=== PATIENT | male | born 1985 | race Caucasian/White ===

== ENCOUNTER → 2019-09-11 11:17 | Outpatient (CLI) | payer OTHER, SELFPAY ==
--- NOTE | 2019-09-11 11:24 | US_ITS ---
PROCEDURE: US TESTICULAR CLINICAL INDICATION: LT TESTICULAR PAIN AND SWELLING Patient kicked in the testicle about 3 weeks ago COMPARISON: No exams were available for comparison FINDINGS: The left testicle has a heterogeneous appearance measuring 3.1 x 3.6 x 4.3 centimeters. Right testicle is homogeneous of normal appears 3.5 x 4.0 x 3.9 centimeters. Internal color Doppler blood flow to both testicles is noted. Findings are highly suspicious for left intratesticular hematoma post trauma. Follow-up is recommended. Neoplasm is not excluded in this patient. Right epididymis has a normal appearance with the left epididymis nonvisualized. No significant hydrocele is noted. IMPRESSION: Heterogeneous enlarged left testicle. Intra testicular hematoma post trauma or testicular neoplasm must be considered. Follow-up is recommended. Dictated by: Maxim Gonzalez 09/11/2019 12:16 Electronically signed by Maxim Gonzalez in [facility] 09/11/2019 12:16
[2019-09-11 12:17] LABS: Microscopic, Urine URINE MICROSCOPIC (MICROSCOPIC)
[2019-09-11 12:34] LABS: Basophils % 0.4 % (0.1-2.0); Eosinophils % 0.6 % (0.1-12.0); Hematocrit 47.1 % (42.0-52.0); Hemoglobin 15.7 g/dL (14.1-18.0); Lymphocytes % 13.7 % (10-50); Mean Corpuscular HGB Conc 33.4 g/dL (31.8-35.4); Mean Corpuscular Hemoglobin 30.1 pg (27.0-31.2); Mean Corpuscular Volume 90.1 fl (80-94); Mean Platelet Volume 7.7 fl (7.4-10.4); Monocytes # 0.4 K/mm3 (0.1-1.0); Monocytes % 5.5 % (1.7-9.3); Neutrophils # 5.8 K/mm3 (1.8-7.8); Neutrophils % 79.7 % (37.0-80.0); Platelet Count 303 K/mm3 (142-424); Red Blood Count 5.22 M/mm3 (4.60-6.20); Red Cell Distribution Width 12.5 % (11.5-17.5); White Blood Count 7.2 K/mm3 (4.8-10.8)
[2019-09-11 12:59] LABS: Appearance,Urine CLEAR (Clear); Bilirubin,Urine Negative (Negative); Blood, Urine Negative (Negative); Color,Urine YELLOW (Yellow); Glucose,Urine (UA) Negative (Negative); Ketones,Urine Negative (Negative); Leukocyte Esterase,Urine Negative (Negative); Nitrate,Urine Negative (Negative); PH,Urine 6.5 (5.0-8.5); Protein,Urine Negative (Negative); Specific Gravity, Urine <= 1.005 (1.005-1.030); Urobilinogen,Urine 0.2 EU/dl (0.2)
[2019-09-11 13:08] LABS: Alanine Aminotransferase 25 U/L (12-78); Albumin Level 4.3 gm/dL (3.4-5.0); Albumin/Globulin Ratio 1.1 (1.1-1.8); Alkaline Phosphatase 83 U/L (46-116); Anion Gap 10.5 mEq/L (5-15); Aspartate Amino Transferase 19 U/L (15-37); Bilirubin,Total 0.3 mg/dL (0.2-1.0); Blood Urea Nitrogen 15 mg/dL (7-18); Calcium 9.5 mg/dL (8.5-10.1); Carbon Dioxide 31 mmol/L (21.0-32.0); Chloride 100 mmol/L (98-107); Estimated Glomerular Filt Rate 76 ml/min (>60); GFR (African American) 92 ML/MIN (>60); Globulin 3.9 gm/dl (1.3-3.2); Glucose 141 mg/dL (74-106); Potassium 4.5 mmoL/L (3.5-5.1); Sodium 137 mmol/L (136-145); Thyroid Stimulating Hormone 0.76 uIU/ml (0.358-3.740); Total Protein,Serum 8.2 gm/dL (6.4-8.2)
[2019-09-11 13:11] LABS: Bacteria,Urine Trace /lpf; Squamous Epithelial Cell,Urine Occasional #/hpf (0-5); WBC,Urine Occasional #/hpf (0-3)
[2019-09-11 13:41] LABS: HCG,Quantitative 0 mIU/mL
--- NOTE | 2019-09-11 14:07 | XR_ITS ---
PROCEDURE: XR CHEST 2V CLINICAL HISTORY: COUGH COMPARISON: No exams were available for comparison FINDINGS: The cardiomediastinal silhouette and pulmonary vascularity are within normal limits. The lungs are clear without infiltrates, suspicious nodules, or pleural effusions. Bilateral nipple piercing noted No acute bony abnormalities. IMPRESSION: No acute findings. Dictated by: Espinoza Walls MD 09/11/2019 14:57 Electronically signed by Espinoza Walls MD in [facility] 09/11/2019 14:57
[2019-09-11 15:41] LABS: Hemoglobin A1C 5.8 % (0.0-7.0)
[2019-09-13 13:02] LABS: AFP, Tumor Marker 2.7
== END ==
PROVIDERS: PCP Internal Medicine Adolescent Medicine; Visit Provider Nurse Practitioner Family
DX: N50.812 Left testicular pain (principal); N50.89 Other specified disorders of the male genital organs; R10.32 Left lower quadrant pain; R10.13 Epigastric pain; R53.83 Other fatigue; R05 Cough; R73.9 Hyperglycemia, unspecified
CPT/HCPCS: 36415; 71046; 76870; 80053; 81001; 82105; 83036; 84443; 84702; 85025; 87086

== ENCOUNTER → 2019-09-26 09:22 | Outpatient (CLI) | payer OTHER, SELFPAY ==
[2019-09-26 10:33] LABS: Activated Partial Thrombo Time 26.3 seconds (23.6-34.0); Prothrombin Time 10.4 seconds (9.4-11.8)
[2019-09-26 11:38] LABS: Lactate Dehydrogenase 218 U/L (82-234)
== END ==
PROVIDERS: Visit Provider Physician Assistant Medical
DX: N50.89 Other specified disorders of the male genital organs (principal)
CPT/HCPCS: 36415; 83615; 85610; 85730

== ENCOUNTER → 2019-10-22 11:35 | Outpatient (CLI) | payer OTHER, SELFPAY ==
[2019-10-22 12:08] LABS: Basophils % 0.8 % (0.1-2.0); Eosinophils # 0.1 K/mm3 (0.0-0.4); Eosinophils % 1.9 % (0.1-12.0); Hematocrit 43.5 % (42.0-52.0); Hemoglobin 14.6 g/dL (14.1-18.0); Lymphocytes % 21.3 % (10-50); Mean Corpuscular HGB Conc 33.6 g/dL (31.8-35.4); Mean Corpuscular Hemoglobin 29.8 pg (27.0-31.2); Mean Corpuscular Volume 88.5 fl (80-94); Monocytes # 0.4 K/mm3 (0.1-1.0); Monocytes % 8.8 % (1.7-9.3); Neutrophils # 3.3 K/mm3 (1.8-7.8); Neutrophils % 67.2 % (37.0-80.0); Platelet Count 379 K/mm3 (142-424); Red Blood Count 4.91 M/mm3 (4.60-6.20); Red Cell Distribution Width 12.8 % (11.5-17.5); White Blood Count 4.9 K/mm3 (4.8-10.8)
[2019-10-22 14:01] LABS: Alanine Aminotransferase 23 U/L (12-78); Albumin Level 5.1 g/dl (3.5-5.0); Albumin/Globulin Ratio 1.5 (1.1-1.8); Alkaline Phosphatase 59 U/L (38-126); Anion Gap 14.2 mEq/L (5-15); Aspartate Amino Transferase 31 U/L (17-59); Bilirubin,Total 0.3 mg/dl (0.2-1.3); Blood Urea Nitrogen 20 mg/dl (9-20); Carbon Dioxide 29 mmol/L (22.0-30.0); Chloride 99 mmol/L (98-107); Estimated Glomerular Filt Rate 96 ml/min (>60); GFR (African American) 116 ML/MIN (>60); Globulin 3.3 g/dL (1.3-3.2); Glucose 98 mg/dl (74-100); Lactate Dehydrogenase 166 U/L (313-618); Potassium 4.2 mmoL/L (3.5-5.1); Sodium 138 mmol/L (136-145); Total Protein,Serum 8.4 g/dl (6.3-8.2)
[2019-10-22 14:18] LABS: HCG,Quantitative < 2 mIU/ml (0-5.42)
[2019-10-23 08:03] LABS: AFP, Tumor Marker 3.2 ng/mL (0.0-8.3)
== END ==
PROVIDERS: Visit Provider Student in an Organized Health Care Education/Training Program
DX: C62.90 Malignant neoplasm of unspecified testis, unspecified whether descended or undescended (principal)
CPT/HCPCS: 36415; 80053; 82105; 83615; 84702; 85025

== ENCOUNTER → 2020-09-05 09:51 | Outpatient (CLI) | payer OTHER, SELFPAY ==
--- NOTE | 2020-09-05 10:14 | XR_ITS ---
PROCEDURE: XR CHEST 2V CLINICAL HISTORY: SEMINOMA, smoking history COMPARISON: CR XR CHEST 2V from 09/11/2019 FINDINGS: The cardiomediastinal silhouette and pulmonary vascularity are within normal limits. The lungs are clear without infiltrates, suspicious nodules, or pleural effusions. No acute bony abnormalities. IMPRESSION: No acute findings. Dictated by: Dr. James Mendez MD 09/05/2020 16:14 Dr. James Mendez MD in [facility] 09/05/2020 16:14
[2020-09-05 10:31] LABS: Basophils # 0.1 K/mm3 (0-0.2); Basophils % 1.1 % (0.1-2.0); Eosinophils # 0.1 K/mm3 (0.0-0.4); Eosinophils % 1.3 % (0.1-12.0); Hematocrit 49.7 % (42.0-52.0); Hemoglobin 16.2 g/dL (14.1-18.0); Lymphocytes # 1.5 K/mm3 (0.7-4.5); Lymphocytes % 27.1 % (10-50); Mean Corpuscular HGB Conc 32.6 g/dL (31.8-35.4); Mean Corpuscular Volume 91.9 fl (80-94); Monocytes # 0.5 K/mm3 (0.1-1.0); Monocytes % 8.5 % (1.7-9.3); Neutrophils # 3.5 K/mm3 (1.8-7.8); Platelet Count 357 K/mm3 (142-424); Red Blood Count 5.41 M/mm3 (4.60-6.20); Red Cell Distribution Width 13.6 % (11.5-17.5); White Blood Count 5.7 K/mm3 (4.8-10.8)
[2020-09-05 11:09] LABS: Alanine Aminotransferase 30 U/L (12-78); Albumin Level 4.6 g/dl (3.5-5.0); Albumin/Globulin Ratio 1.4 (1.1-1.8); Alkaline Phosphatase 70 U/L (38-126); Anion Gap 11.4 mEq/L (5-15); Aspartate Amino Transferase 34 U/L (17-59); Bilirubin,Total 0.4 mg/dl (0.2-1.3); Blood Urea Nitrogen 18 mg/dl (9-20); Calcium 10.1 mg/dl (8.4-10.2); Carbon Dioxide 33 mmol/L (22.0-30.0); Chloride 100 mmol/L (98-107); Estimated Glomerular Filt Rate 76 ml/min (>60); GFR (African American) 92 ML/MIN (>60); Globulin 3.4 g/dL (1.3-3.2); Glucose 97 mg/dl (74-100); Lactate Dehydrogenase 375 U/L (313-618); Potassium 4.4 mmoL/L (3.5-5.1); Sodium 140 mmol/L (136-145)
[2020-09-05 11:25] LABS: HCG,Quantitative < 2 mIU/ml (0-5.42)
[2020-09-06 18:28] LABS: AFP, Tumor Marker 2.8 ng/mL (0.0-8.3)
== END ==
PROVIDERS: Visit Provider Physician Assistant Medical
DX: C62.90 Malignant neoplasm of unspecified testis, unspecified whether descended or undescended (principal)
CPT/HCPCS: 36415; 71046; 80053; 82105; 83615; 84702; 85025

== ENCOUNTER 2020-12-21 21:55 | Emergency (ER) | payer OTHER, SELFPAY ==
[2020-12-21 22:03] VITALS: BP 144/91; PULSE 75; RESP 18; TEMP 36.9; O2SAT 100; BMI 29.2
--- NOTE | 2020-12-21 22:09 | XR_ITS ---
PROCEDURE: XR CHEST 2V CLINICAL HISTORY: coughing up blood History of seminoma COMPARISON: CR XR CHEST 2V from 09/11/2019 CR XR CHEST 2V from 09/05/[address] ANGIO CHEST from 12/21/2020 FINDINGS: There is a large right upper lobe mass measuring 12 x 8 cm. There is some minimal tracheal deviation toward the left. Postobstruction pneumonitis suspected also in the right upper lobe superiorly. There is mild left hilar adenopathy. No acute bony abnormalities. IMPRESSION: Large right upper lobe mass with left perihilar adenopathy suspicious for neoplasm. This has developed since 09/05/2020. There is history of seminoma according to previous chest x-ray report. Metastatic disease from seminoma is considered. Lymphoma would also be a consideration. Dictated by: Espinoza Walls MD 12/22/2020 05:58 Espinoza Walls MD in [facility] 12/22/2020 05:58
--- NOTE | 2020-12-21 22:09 | CT_ITS ---
PROCEDURE: CT ANGIO CHEST CLINCIAL INDICATION: coughing up blood History of seminoma COMPARISON: No exams were available for comparison TECHNIQUE: IV Contrast: 70ML Isovue 370 Axial images obtained with sagittal and coronal reformats. All CT scans at the facility use one or more dose reduction, viz: automated exposure control, ma/kV adjustment per patient size (including targeted exams where dose is matched to indication, i.e. head), or iterative reconstruction technique. FINDINGS: There is a large right upper lobe/perihilar mass 11 x 11 x 7 cm craniocaudal, AP and transverse respectively. There is peripheral occlusion of the right upper lobe segmental bronchi within the perihilar mass and occluded right middle lobe bronchus. No central necrosis/cavitation. Soft tissue density extends along the right mainstem bronchus up to near the level of the emelia concerning for mediastinal extension versus conglomerate sam enlargement. Postobstructive changes are present in the right upper lobe posteriorly and in the peripheral aspect of the right upper lobe laterally. The mass involves the entire aspect of the right middle lobe and most of the right upper lobe with some apical sparing. There is hyperexpansion of the right lower lobe. Nodularity is noted in the bronchovascular area in the right perihilar region of the right lower lobe consistent with adenopathy measuring up to 19 mm. There is mediastinal and left hilar adenopathy with nodules along the bronchovascular bundles of the left lower lobe superior segment measuring 17 x 16 mm. No effusions are apparent. No evidence of aortic aneurysm or dissection. No obvious central pulmonary embolus. The pulmonary arteries are not well opacified peripherally. There is constriction of the peripheral pulmonary arteries in the region of the right upper and right middle lobe mass but no definite occlusion No acute bony findings. Upper abdominal images show extensive adenopathy in the portal region and celiac area as well as adenopathy in the retroperitoneum. This is incompletely imaged. IMPRESSION: 1. Large right upper lobe right middle lobe and right perihilar mass as described above. There is mediastinal and left hilar adenopathy as well as adenopathy in the upper abdomen and retroperitoneum. Multiple nodules are present along the bronchovascular bundles of both lower lobes. Metastatic seminoma should be considered. Lymphoma would be an additional consideration. Some of the opacity in the right upper and right middle lobe may also be related to volume loss and consolidation. 2. No evidence of pulmonary embolus. Dictated by: Espinoza Walls MD 12/22/2020 11:08 Espinoza Walls MD in [facility] 12/22/2020 11:08
[2020-12-21 22:22] LABS: Basophils % 0.5 % (0.1-2.0); Eosinophils # 0.1 K/mm3 (0.0-0.4); Eosinophils % 1.4 % (0.1-12.0); Hematocrit 42.1 % (42.0-52.0); Hemoglobin 14.2 g/dL (14.1-18.0); Lymphocytes # 1.1 K/mm3 (0.7-4.5); Lymphocytes % 13.5 % (10-50); Mean Corpuscular HGB Conc 33.7 g/dL (31.8-35.4); Mean Corpuscular Hemoglobin 29.1 pg (27.0-31.2); Mean Corpuscular Volume 86.5 fl (80-94); Mean Platelet Volume 7.1 fl (7.4-10.4); Monocytes # 0.6 K/mm3 (0.1-1.0); Monocytes % 7.6 % (1.7-9.3); Neutrophils # 6.2 K/mm3 (1.8-7.8); Neutrophils % 76.9 % (37.0-80.0); Platelet Count 567 K/mm3 (142-424); Red Blood Count 4.86 M/mm3 (4.60-6.20); Red Cell Distribution Width 12.8 % (11.5-17.5); White Blood Count 8.1 K/mm3 (4.8-10.8)
[2020-12-21 22:33] LABS: Alanine Aminotransferase 57 U/L (12-78); Albumin Level 4.4 g/dl (3.5-5.0); Alkaline Phosphatase 131 U/L (38-126); Anion Gap 12.9 mEq/L (5-15); Aspartate Amino Transferase 61 U/L (17-59); Bilirubin,Indirect 0.2 mg/dL (0.0-0.9); Bilirubin,Total 0.2 mg/dl (0.2-1.3); Bilirubin,Unconjugated 0.2 mg/dL (0.0-1.1); Blood Urea Nitrogen 13 mg/dl (9-20); Calcium 9.8 mg/dl (8.4-10.2); Carbon Dioxide 28 mmol/L (22.0-30.0); Chloride 103 mmol/L (98-107); Creatinine Clearance Estimated 82 mL/min (50-200); Estimated Glomerular Filt Rate 69 ml/min (>60); GFR (African American) 83 ML/MIN (>60); Glucose 100 mg/dl (74-100); Potassium 3.9 mmoL/L (3.5-5.1); Sodium 140 mmol/L (136-145); Total Protein,Serum 8.9 g/dl (6.3-8.2)
--- NOTE | 2020-12-21 22:48 | HMH.EDURI ---
ED Disposition Clinical Impression: Mass of right lung, Cough with hemoptysis Disposition: Home, Self-Care Condition on Discharge: Serious Instructions: DI for Hemoptysis Additional Instructions: call pcp for follow up Referrals: Kimani Mcclain MD [Primary Care Provider] - Forms: Work/School Release - Critical Care Critical Care Time: No Attestation: On 12/21/20, the high probability of a clinically significant, sudden or life threatening deterioration of the following system(s) required my full and direct attention, intervention and personal management. The time I documented below is in addition to time spent performing reported procedures but includes the following listed in this critical care notation. Medical Decision Making - Medical Records Medical records reviewed: Yes: I reviewed the patient's medical records. - Andre Inquiry Pt receiving controlled substance: No Vital Signs: 12/21/20 22:03 Temperature 98.5 F Temperature Source Oral Pulse Rate [Right Brachial] 75 Respiratory Rate 18 Blood Pressure [Right Arm] 144/91 H Blood Pressure Mean [Right Arm] 108 Blood Pressure Source [Right Arm] Automatic Cuff Blood Pressure Position [Right Arm] Sitting 02 Sat by Pulse Oximetry 100 Oxygen Delivery Method Room Air - Lab Data Lab results reviewed: Yes: I reviewed the patient's lab results. Lab Results 12/21/20 22:10: WBC 8.1, RBC 4.86, Hgb 14.2, Hct 42.1, MCV 86.5, MCH 29.1, MCHC 33.7, RDW 12.8, Plt Count 567 H, MPV 7.1 L, Neut % (Auto) 76.9, Lymph % (Auto) 13.5, [place] % (Auto) 7.6, Eos % (Auto) 1.4, Baso % (Auto) 0.5, Neut # (Auto) 6.2, Lymph # (Auto) 1.1, [place] # (Auto) 0.6, Eos # (Auto) 0.1, Baso # (Auto) 0.0 12/21/20 22:10: Sodium 140, Potassium 3.9, Chloride 103, Carbon Dioxide 28, Anion Gap 12.9, BUN 13, Creatinine 1.20, Estimated Creat Clear 82, Estimated GFR 69, Est GFR ( Amer) 83, Glucose 100, Calcium 9.8, Total Bilirubin 0.2, Direct Bilirubin 0.0, Conjugated Bilirubin 0.0, Indirect Bilirubin 0.2, Unconjugated Bilirubin 0.2, AST 61 H, ALT 57, Alkaline Phosphatase 131 H, Total Protein 8.9 H, Albumin 4.4 12/21/20 22:10: Procalcitonin 0.067 12/22/20 00:00: ESR 27 H 12/22/20 00:00: C-Reactive Protein 43.3 H Result diagrams: 12/21/20 22:10 12/21/20 22:10 Orders (Tests/Meds): ED MEDICATIONS Discontinued Medications Generic Name Dose Route Start Last Admin Trade Name Freq PRN Reason Stop Dose Admin Iopamidol 70 ml 12/22/20 00:16 12/22/20 00:17 Iopamidol-370 (76%);100ml Bottle IV 12/22/20 00:17 70 ml ONCE ONE Administration Sodium Chloride 50 ml 12/22/20 00:16 12/22/20 00:17 0.9 % Sodium Chloride 50 Ml Vial IV 12/22/20 00:17 50 ml ONCE ONE Administration Sodium Chloride 10 ml 12/22/20 00:16 12/22/20 00:17 Sodium Chloride 0.9% 10ml Syr (Rad Only) IV 12/22/20 00:17 10 ml ONCE ONE Administration ORDERS Category Date Time Status CT angio chest Stat Cat Scan 12/21/20 22:09 Taken XR chest 2V Stat Exams 12/21/20 22:09 Taken Full Resp Panel w/COVID ([facility]) Routine Lab 12/21/20 22:49 Ordered - Radiology Data #1 Image(s): Chest Image Reviewed: Yes I reviewed the patient's radiology image Preliminary Findings: Abnormal (rt lung mass) - CT Data CT Scan: Chest Time Received: 02:[address] Reviewed: Yes: I have viewed the radiologist's interpretation Preliminary Findings: Abnormal (see report ) Medical Decision Narrative: has abn cxr and ct with hx of testicular cancer - will ask pt to call pcp in am URI/Sore Throat HPI - General Chief Complaint: Upper Respiratory Infection Stated Complaint: COUGHING UP BLOOD Time Seen by Provider: 12/21/20 22:30 Mode of Arrival: Family Vehicle Source of Information: Patient, Medical Record Limitations: No Limitations Description of Symptoms (Recalled from ER Triage Doc. by RN): has been coughing intermittently for two weeks; pcp placed on amoxicillin for bronchitis (finished yesterday) and s
[2020-12-21 22:50] LABS: Procalcitonin 0.067 ng/mL (0.0-2.0)
--- NOTE | 2020-12-21 23:59 | PC.NURSE ---
up in ct
--- NOTE | 2020-12-22 00:56 | PC.NURSE ---
Dr. Block on the phone vrad
[2020-12-22 01:19] LABS: C-Reactive Protein 43.3 mg/L (0-4)
[2020-12-22 01:24] LABS: Erythrocyte Sedimentation Rate 27 mm/hr (0-15)
[2020-12-22 02:31] VITALS: BP 124/75; PULSE 83; RESP 17; TEMP 36.8; O2SAT 98
== END 2020-12-22 01:22 | disposition home or self-care (01) ==
PROVIDERS: Emergency Provider Emergency Medicine; PCP Internal Medicine Adolescent Medicine
DX: R91.8 Other nonspecific abnormal finding of lung field (principal); R04.2 Hemoptysis; F17.210 Nicotine dependence, cigarettes, uncomplicated; Z85.47 Personal history of malignant neoplasm of testis
CPT/HCPCS: 71046; 71275; 80048; 80076; 84145; 85025; 85651; 86140; 99283; Q9967

== ENCOUNTER → 2020-12-22 14:28 | Outpatient (CLI) | payer OTHER, SELFPAY ==
[2020-12-22 15:25] LABS: Uric Acid 7.2 mg/dl (3.5-8.5)
[2020-12-22 15:31] LABS: Lactate Dehydrogenase > 2000 U/L (313-618)
[2020-12-22 15:50] LABS: HCG,Quantitative < 2 mIU/ml (0-5.42)
[2020-12-22 17:02] LABS: Basophils # 0.1 K/mm3 (0-0.2); Basophils % 1.1 % (0.1-2.0); Eosinophils # 0.1 K/mm3 (0.0-0.4); Eosinophils % 1.1 % (0.1-12.0); Hematocrit 44.4 % (42.0-52.0); Hemoglobin 14.4 g/dL (14.1-18.0); Lymphocytes # 0.9 K/mm3 (0.7-4.5); Lymphocytes % 11.7 % (10-50); Mean Corpuscular HGB Conc 32.5 g/dL (31.8-35.4); Mean Corpuscular Hemoglobin 28.7 pg (27.0-31.2); Mean Corpuscular Volume 88.3 fl (80-94); Mean Platelet Volume 7.2 fl (7.4-10.4); Monocytes # 0.7 K/mm3 (0.1-1.0); Monocytes % 8.8 % (1.7-9.3); Neutrophils % 77.2 % (37.0-80.0); Platelet Count 587 K/mm3 (142-424); Red Blood Count 5.03 M/mm3 (4.60-6.20); Red Cell Distribution Width 12.7 % (11.5-17.5); White Blood Count 7.8 K/mm3 (4.8-10.8)
[2020-12-22 17:10] LABS: INR 0.91 (0.9-1.1); Prothrombin Time 10.8 seconds (10.1-12.5)
[2020-12-22 17:23] LABS: C-Reactive Protein 46.8 mg/L (0-4)
[2020-12-24 15:12] LABS: AFP, Tumor Marker 3.2 ng/mL (0.0-8.3)
[2020-12-25 16:02] LABS: Fungitell(Beta D-Glucan) Serum <31 pg/mL (<80)
[2020-12-26 00:05] LABS: Histoplasma Gal'mannan Ag Ur <0.5 (<0.5 ng/mL)
[2020-12-26 10:12] LABS: QuantiFERON-TB Gold Plus Negative (Negative)
[2020-12-26 14:39] LABS: Aspergillus Antigen, BAL/Serum 0.06 Index (0.00-0.49)
== END ==
PROVIDERS: Internal Medicine Pulmonary Disease; Visit Provider Internal Medicine Medical Oncology
DX: R59.0 Localized enlarged lymph nodes (principal); Z85.47 Personal history of malignant neoplasm of testis; R04.2 Hemoptysis; R91.8 Other nonspecific abnormal finding of lung field; J45.909 Unspecified asthma, uncomplicated
CPT/HCPCS: 36415; 82105; 83615; 84550; 84702; 85025; 85610; 86140; 86480; 87305; 87385; 87449

== ENCOUNTER → 2020-12-23 10:48 | Outpatient (CLI) | payer OTHER, SELFPAY ==
--- NOTE | 2020-12-23 10:57 | CT_ITS ---
PROCEDURE: CT ABDOMEN PELVIS WO/W CON CLINICAL INDICATION: LUNG MASS History of testicular cancer. COMPARISON: CT CT ANGIO CHEST from 12/21/2020 TECHNIQUE: IV Contrast: 75ML Isovue 370 Oral Contrast None Axial images obtained with sagittal and coronal reformats. All CT scans at the facility use one or more dose reduction, viz: automated exposure control, ma/kV adjustment per patient size (including targeted exams where dose is matched to indication, i.e. head), or iterative reconstruction technique. FINDINGS: LOWER THORAX: There are mild atelectatic changes in the right lung base. A nodular opacity is present in the lingula measuring approximately 10 x 6 mm. Dense consolidation/volume loss and or mass once again noted in the right middle lobe ABDOMEN & PELVIS: There are several hypodense hepatic lesions, at least 5 in both lobes of the liver the largest in the right hepatic lobe inferiorly at 13 mm. These are more dense than what 1 would expect for hepatic cysts and may be due to metastatic disease. Liver MRI with hemangioma protocol may confirm. The spleen and adrenal glands have an unremarkable appearance. Pancreas has an unremarkable appearance. Nonobstructing stone is present in the lower pole of the right kidney at 3 mm.. No hydronephrosis. There is moderate retroperitoneal adenopathy as well as adenopathy in the upper abdomen around the celiac axis. The sam mass in this region measures 3 x 5 cm. The retroperitoneal sam mass measures 5.4 x 5.1 cm. No intestinal obstruction or free air. Urinary bladder is distended. There is no inguinal or iliac adenopathy. No evidence of appendicitis. No abnormal fluid collections. No acute bony findings. IMPRESSION: 1. Bulky upper abdominal and retroperitoneal adenopathy which may represent involvement from patient's known history of testicular cancer. Lymphoma is included in the differential diagnosis. 2. Hypodense hepatic lesions suspicious for metastatic disease. 3. 10 x 6 mm nodule within the lingula with atelectatic changes in the right lung base and dense consolidation/volume loss of the right middle lobe Dictated by: Espinoza Walls MD 12/23/2020 12:53 Espinoza Walls MD in [place] 12/23/2020 12:53
== END ==
PROVIDERS: PCP Internal Medicine Adolescent Medicine; Visit Provider Internal Medicine Adolescent Medicine
DX: R91.8 Other nonspecific abnormal finding of lung field (principal)
CPT/HCPCS: 74178; 87070; 87205; Q9967

== ENCOUNTER → 2020-12-26 12:08 | Outpatient (CLI) | payer OTHER, SELFPAY | PROVIDERS: PCP Internal Medicine Adolescent Medicine; Visit Provider Internal Medicine Pulmonary Disease | DX: Z20.822 Contact with and (suspected) exposure to COVID-19 (principal) | CPT/HCPCS: U0003 ==

== ENCOUNTER 2020-12-29 11:35 | Day surgery (SDC) | payer OTHER, SELFPAY ==
[2020-12-25 14:20] VITALS: BMI 22.8
[2020-12-29] VITALS (9 sets, daily range): BP systolic 119–146; BP diastolic 69–86; PULSE 56–90; RESP 12–18; TEMP 36.6–43; O2SAT 92–97
--- NOTE | 2020-12-29 14:55 | HMH.ANESCL ---
[facility] Anesthesia Checklist - Patient Identification Patient Identification: Arm Band - Structural Data Admitted From: Home Planned Operative Procedure/s: Bronchoscopy with EBUS Consent for Planned Operative Procedure(s) Verified: Yes Verified Documents: Surgical Consent, History and Physical - NPO Status Verified Time NPO: 00:00 - Additional verifications Anesthesia Reactions: No Hx Blood Transfusions: No Blood Transfusion Reaction: No - Airway Assessment C-Spine Mobility Assessed: Yes (mp2) TMJ Mobility Assessed: Yes Dentition: Good Dentition - Neurological Assessment Level of Consciousness: Awake, Alert - Anesthesia Plan Anesthesia Risk discussed: Yes Anesthesia Plan: Verified ASA Class: II Anesthesia Type: General [facility] History Medical History: Reports:: Cancer (LUNG) Denies:: Diabetes Mellitus Type 1, Diabetes Mellitus Type 2, MRSA, Seizures *Have you ever received a pneumonia vaccine?: No *Have you received a flu vaccine this season?: No Other Medical History: Denies: Blood Transfusion Reaction Anesthesia experience/problems:: nac Laterality Cases: Right: Arthroscopy Shoulder Amputation: No Fractures: No - *Social History Last grade of school completed: High school graduate Smoking Status: Former smoker Tobacco Type: cigarettes # Packs/Day (cigarettes): 1 Alcohol Intake: never Alcohol Intake Frequency:: a few times a week Substance Use Type: opiates *Occupational Status:: disabled *Travel in the last 8 weeks: None Family Hx:: No significant family history
--- NOTE | 2020-12-29 16:07 | HMH.ANESI ---
[facility] Anesthesia Record Part I Intake, IV Amount: 1,000 Estimated blood loss (mL): 0 Urine output (mL): 0 Blood Pressure: 142/69 SaO2: 92 Pulse Rate: 82 Respiratory Rate: 12 Temperature: 97.9 F Patient is:: Awake, Stable Stable to PACU at:: 16:05
--- NOTE | 2020-12-29 16:29 | HMH.BRONCH ---
- Procedure: Date: 12/29/20 Patient Date of :: 1985 Procedure Performed:: Bronchoscopy with EBUS FNA and endobronchial biopsy Indications:: Lung mass and lymphadenopathy Performing Provider:: Félix Hernández MD Referring Provider:: Dr. Mcclain Sedation:: General anesthesia Procedure:: Bronchoscopy with EBUS FNA and endobronchial lung biopsy: A clean EBUS scope was advanced to the ET tube and EBUS FNA was performed at station 7 and station 10 R with adequate lymphoid tissue that is concerning for malignant etiology. Tissue was sent for the slides and for cell block/cytopathological examination. EBUS bronchoscopy was removed and a clean therapeutic bronchoscopy advanced for airway examination. Airways in the left lung appeared grossly normal. Airways in the right lung are grossly abnormal. Right upper lobe segmental bronchi are occluded with tumor mass extending into the mainstem. Endobronchial lesion was also noted in the bronchus intermedius. Right middle lobe bronchus is completely occluded. Right lower lobe bronchi appeared grossly normal. Endobronchial biopsies was performed for the lesions noted in the right upper lobe. Minimal bleeding noted. Adequate hemostasis achieved by the end of the procedure. Patient tolerated the procedure well. Patient already had a oncology appointment with Dr. Hoffmann at [facility] for coming Tuesday. I have discussed with the pathology to expedite the reports so patient will have the report by the time of his oncology appointment. Patient is scheduled to receive his PET scan this morning however that was canceled. We will hold off on rescheduling the PET scan until patient sees his oncologist. The PET scan was already prior authorized and I have informed the patient that he can get his PET scan at as per his oncologist. Findings:: Please see the procedure note. Recommendations:: Follow with oncology appointment. Complications:: None Estimated blood obtained (mL): 5
[2020-12-30 12:54] VITALS: BP 131/86; PULSE 90; TEMP 36.9
--- NOTE | 2020-12-30 12:54 | P.PN_ITS ---
[facility] Anesthesia Record Part II Discharge Time: 16:35 Destination: Surgical Day Care (OP Surgery) PACU nurse assessment reviewed?: Yes Patient Condition:: Good Anesthesia Complications:: None Swallowing reflex intact?: Yes Cyanosis?: No Blood Pressure: 131/86 Pulse Rate: 90 Temperature: 98.5 F Mental Status: Alert & Oriented Pain level:: 0 Nausea and/or vomitting:: None Intake, IV Amount: 0
== END 2020-12-29 17:05 | disposition home or self-care (01) ==
LOC: OR 11:36
PROVIDERS: PCP Internal Medicine Adolescent Medicine; Visit Provider Internal Medicine Pulmonary Disease
PROC: (CPT 31652; principal; 2020-12-29 13:00)
DX: C34.11 Malignant neoplasm of upper lobe, right bronchus or lung (principal)
CPT/HCPCS: 31652; 31625; J2405; J2710

== ENCOUNTER 2021-02-16 08:13 | Outpatient (CLI) | payer OTHER, SELFPAY ==
[2021-02-16] VITALS (17 sets, daily range): BP systolic 91–145; BP diastolic 46–79; PULSE 62–82; RESP 17; TEMP 36.6–36.7; O2SAT 17–97; BMI 24.0
[2021-02-16 08:39] LABS: Basophils % 0.8 % (0.1-2.0); Eosinophils # 0.1 K/mm3 (0.0-0.4); Eosinophils % 2.5 % (0.1-12.0); Hematocrit 38.3 % (42.0-52.0); Lymphocytes # 1.2 K/mm3 (0.7-4.5); Lymphocytes % 25.8 % (10-50); Mean Corpuscular HGB Conc 33.9 g/dL (31.8-35.4); Mean Corpuscular Hemoglobin 28.5 pg (27.0-31.2); Mean Corpuscular Volume 84.1 fl (80-94); Mean Platelet Volume 7.7 fl (7.4-10.4); Monocytes # 0.7 K/mm3 (0.1-1.0); Monocytes % 15.8 % (1.7-9.3); Neutrophils # 2.6 K/mm3 (1.8-7.8); Platelet Count 338 K/mm3 (142-424); Red Blood Count 4.56 M/mm3 (4.60-6.20); Red Cell Distribution Width 17.8 % (11.5-17.5); White Blood Count 4.7 K/mm3 (4.8-10.8)
[2021-02-16 08:51] LABS: Chloride 98 mmol/L (98-107); Sodium 136 mmol/L (136-145)
[2021-02-16 08:52] LABS: Potassium 4.1 mmoL/L (3.5-5.1)
[2021-02-16 08:54] LABS: Alanine Aminotransferase 24 U/L (12-78); Albumin Level 4.5 g/dl (3.5-5.0); Albumin/Globulin Ratio 1.4 (1.1-1.8); Alkaline Phosphatase 85 U/L (38-126); Anion Gap 14.1 mEq/L (5-15); Aspartate Amino Transferase 34 U/L (17-59); Bilirubin,Total 0.4 mg/dl (0.2-1.3); Blood Urea Nitrogen 19 mg/dl (9-20); Calcium 9.1 mg/dl (8.4-10.2); Carbon Dioxide 28 mmol/L (22.0-30.0); Creatinine Clearance Estimated 85 mL/min (50-200); Estimated Glomerular Filt Rate 68 ml/min (>60); GFR (African American) 82 ML/MIN (>60); Globulin 3.3 g/dL (1.3-3.2); Glucose 122 mg/dl (74-100); Total Protein,Serum 7.8 g/dl (6.3-8.2)
[2021-02-16 08:55] LABS: Magnesium 2.2 mg/dl (1.6-2.3)
--- NOTE | 2021-02-16 09:55 | PC.NURSE ---
pre-fluids started at this time. pt resting with eyes closed. no complaints at this time.
--- NOTE | 2021-02-16 11:10 | PC.NURSE ---
pt resting with eyes closed.
--- NOTE | 2021-02-16 13:24 | PC.NURSE ---
post fluids and etopodise started at this time. pt resting watching TV. no complaints at this time
--- NOTE | 2021-02-16 13:50 | PC.NURSE ---
cisplatin started at this time. pt eating lunch. no complaints at this time
== END 2021-02-16 16:37 | disposition home or self-care (01) ==
LOC: INF 08:13
PROVIDERS: Visit Provider Internal Medicine Medical Oncology
DX: Z51.11 Encounter for antineoplastic chemotherapy (principal); C62.92 Malignant neoplasm of left testis, unspecified whether descended or undescended; C78.00 Secondary malignant neoplasm of unspecified lung; K76.89 Other specified diseases of liver; C78.6 Secondary malignant neoplasm of retroperitoneum and peritoneum
CPT/HCPCS: 80053; 83735; 85025; 96411; 96413; 96415; 96417; J2469; J9040; J9060; J9181

== ENCOUNTER 2021-02-17 08:40 | Outpatient (CLI) | payer OTHER, SELFPAY ==
[2021-02-17] VITALS (9 sets, daily range): BP systolic 114–129; BP diastolic 58–73; PULSE 61–78; RESP 18; TEMP 36.4; O2SAT 97–98
== END 2021-02-17 14:37 | disposition home or self-care (01) ==
LOC: INF 08:40
PROVIDERS: Visit Provider Internal Medicine Medical Oncology
DX: Z51.11 Encounter for antineoplastic chemotherapy (principal); C62.92 Malignant neoplasm of left testis, unspecified whether descended or undescended; C78.00 Secondary malignant neoplasm of unspecified lung; K76.89 Other specified diseases of liver; C78.6 Secondary malignant neoplasm of retroperitoneum and peritoneum
CPT/HCPCS: 96413; 96415; 96417; J1642; J9060; J9181

== ENCOUNTER 2021-02-18 08:35 | Outpatient (CLI) | payer OTHER, SELFPAY ==
[2021-02-18] VITALS (12 sets, daily range): BP systolic 105–125; BP diastolic 51–94; PULSE 58–80; RESP 17–18; O2SAT 97
== END 2021-02-18 14:20 | disposition home or self-care (01) ==
LOC: INF 08:43
PROVIDERS: Visit Provider Internal Medicine Medical Oncology
DX: Z51.11 Encounter for antineoplastic chemotherapy; C62.92 Malignant neoplasm of left testis, unspecified whether descended or undescended; C78.00 Secondary malignant neoplasm of unspecified lung; K76.89 Other specified diseases of liver; C78.6 Secondary malignant neoplasm of retroperitoneum and peritoneum
CPT/HCPCS: 96413; 96415; 96417; J1642; J9060; J9181

== ENCOUNTER 2021-02-19 08:35 | Outpatient (CLI) | payer OTHER, SELFPAY ==
[2021-02-19] VITALS (11 sets, daily range): BP systolic 122–153; BP diastolic 61–85; PULSE 59–73; RESP 17–18; O2SAT 96
== END 2021-02-19 14:45 | disposition home or self-care (01) ==
LOC: INF 08:58
PROVIDERS: Visit Provider Internal Medicine Medical Oncology
DX: C62.92 Malignant neoplasm of left testis, unspecified whether descended or undescended (principal); C78.00 Secondary malignant neoplasm of unspecified lung; K76.89 Other specified diseases of liver; C78.6 Secondary malignant neoplasm of retroperitoneum and peritoneum
CPT/HCPCS: 96413; 96415; 96417; J1642; J9060; J9181

== ENCOUNTER 2021-02-20 08:25 | Outpatient (CLI) | payer OTHER, SELFPAY ==
[2021-02-20] VITALS (17 sets, daily range): BP systolic 117–146; BP diastolic 70–89; PULSE 51–80; RESP 16–18; TEMP 36.7; O2SAT 95
== END 2021-02-20 15:00 | disposition home or self-care (01) ==
LOC: INF 08:35
PROVIDERS: Visit Provider Internal Medicine Medical Oncology
DX: C62.92 Malignant neoplasm of left testis, unspecified whether descended or undescended (principal); C78.00 Secondary malignant neoplasm of unspecified lung; K76.89 Other specified diseases of liver; C78.6 Secondary malignant neoplasm of retroperitoneum and peritoneum
CPT/HCPCS: 96413; 96415; 96417; J1642; J9060; J9181

== ENCOUNTER 2021-02-24 11:50 | Outpatient (CLI) | payer OTHER, SELFPAY ==
[2021-02-24 12:01] VITALS: BMI 23.7
[2021-02-24 12:11] LABS: Basophils % 0.2 % (0.1-2.0); Eosinophils % 0.5 % (0.1-12.0); Hematocrit 36.4 % (42.0-52.0); Hemoglobin 12.4 g/dL (14.1-18.0); Lymphocytes # 0.3 K/mm3 (0.7-4.5); Lymphocytes % 4.7 % (10-50); Mean Corpuscular HGB Conc 34.1 g/dL (31.8-35.4); Mean Corpuscular Hemoglobin 28.6 pg (27.0-31.2); Mean Corpuscular Volume 84.1 fl (80-94); Mean Platelet Volume 7.9 fl (7.4-10.4); Monocytes # 0.1 K/mm3 (0.1-1.0); Monocytes % 0.9 % (1.7-9.3); Neutrophils # 6.8 K/mm3 (1.8-7.8); Neutrophils % 93.7 % (37.0-80.0); Platelet Count 140 K/mm3 (142-424); Red Blood Count 4.33 M/mm3 (4.60-6.20); Red Cell Distribution Width 17.5 % (11.5-17.5); White Blood Count 7.3 K/mm3 (4.8-10.8)
[2021-02-24 12:15] LABS: MANUAL DIFFERENTIAL MANUAL DIFFERENTIAL (MANUAL DIFF)
[2021-02-24 12:25] LABS: Chloride 101 mmol/L (98-107)
[2021-02-24 12:26] LABS: Potassium 4.1 mmoL/L (3.5-5.1); Sodium 137 mmol/L (136-145)
[2021-02-24 12:28] LABS: Blood Urea Nitrogen 20 mg/dl (9-20); Creatinine Clearance Estimated 112 mL/min (50-200); Estimated Glomerular Filt Rate 95 ml/min (>60); GFR (African American) 115 ML/MIN (>60)
[2021-02-24 12:29] LABS: Alanine Aminotransferase 35 U/L (12-78); Albumin Level 4.6 g/dl (3.5-5.0); Albumin/Globulin Ratio 1.5 (1.1-1.8); Alkaline Phosphatase 66 U/L (38-126); Anion Gap 16.1 mEq/L (5-15); Aspartate Amino Transferase 28 U/L (17-59); Bilirubin,Total 0.3 mg/dl (0.2-1.3); Calcium 9.3 mg/dl (8.4-10.2); Carbon Dioxide 24 mmol/L (22.0-30.0); Globulin 3.1 g/dL (1.3-3.2); Glucose 125 mg/dl (74-100); Magnesium 1.9 mg/dl (1.6-2.3); Total Protein,Serum 7.7 g/dl (6.3-8.2)
[2021-02-24 13:10] VITALS: BP 130/71; PULSE 77; RESP 17; TEMP 36.8; O2SAT 98
[2021-02-24 13:16] LABS: Eosinophils % 6 % (0-3); Lymphocytes % 9 % (10-50); Monocytes % 1 % (2-9); Neutrophils % 84 % (42-76); Total Cells Counted 100
[2021-02-24 13:17] LABS: Anisocytosis 1+; Microcytosis 1+; Platelet Estimate Normal
[2021-02-24 13:18] LABS: Hypersegmented Neutrophils 1+
[2021-02-24 14:01] VITALS: BP 134/84; PULSE 75; RESP 17; O2SAT 98
== END 2021-02-24 14:02 | disposition home or self-care (01) ==
LOC: INF 11:52
PROVIDERS: Visit Provider Internal Medicine Medical Oncology
DX: C62.92 Malignant neoplasm of left testis, unspecified whether descended or undescended (principal); C78.00 Secondary malignant neoplasm of unspecified lung; C78.6 Secondary malignant neoplasm of retroperitoneum and peritoneum; K76.89 Other specified diseases of liver
CPT/HCPCS: 80053; 83735; 85007; 85025; 96413; J1642; J9040

== ENCOUNTER 2021-03-03 10:40 | Outpatient (CLI) | payer OTHER, SELFPAY ==
[2021-03-03 10:41] VITALS: BMI 23.7
[2021-03-03 10:56] LABS: Basophils % 2.6 % (0.1-2.0); Eosinophils % 1.1 % (0.1-12.0); Hemoglobin 11.5 g/dL (14.1-18.0); Lymphocytes # 0.5 K/mm3 (0.7-4.5); Lymphocytes % 39.9 % (10-50); Mean Corpuscular HGB Conc 32.9 g/dL (31.8-35.4); Mean Corpuscular Hemoglobin 28.2 pg (27.0-31.2); Mean Corpuscular Volume 85.7 fl (80-94); Mean Platelet Volume 6.9 fl (7.4-10.4); Monocytes # 0.3 K/mm3 (0.1-1.0); Monocytes % 21.7 % (1.7-9.3); Neutrophils # 0.5 K/mm3 (1.8-7.8); Neutrophils % 34.6 % (37.0-80.0); Platelet Count 342 K/mm3 (142-424); Red Blood Count 4.09 M/mm3 (4.60-6.20); Red Cell Distribution Width 18.3 % (11.5-17.5)
[2021-03-03 11:02] LABS: Chloride 103 mmol/L (98-107)
[2021-03-03 11:03] LABS: Potassium 3.9 mmoL/L (3.5-5.1); Sodium 140 mmol/L (136-145)
[2021-03-03 11:04] LABS: MANUAL DIFFERENTIAL MANUAL DIFFERENTIAL (MANUAL DIFF)
[2021-03-03 11:05] LABS: Alanine Aminotransferase 24 U/L (12-78); Albumin Level 4.2 g/dl (3.5-5.0); Albumin/Globulin Ratio 1.3 (1.1-1.8); Alkaline Phosphatase 82 U/L (38-126); Anion Gap 12.9 mEq/L (5-15); Aspartate Amino Transferase 29 U/L (17-59); Bilirubin,Total 0.2 mg/dl (0.2-1.3); Blood Urea Nitrogen 15 mg/dl (9-20); Carbon Dioxide 28 mmol/L (22.0-30.0); Creatinine Clearance Estimated 92 mL/min (50-200); Estimated Glomerular Filt Rate 75 ml/min (>60); GFR (African American) 91 ML/MIN (>60); Globulin 3.2 g/dL (1.3-3.2); Total Protein,Serum 7.4 g/dl (6.3-8.2); White Blood Count 1.3 K/mm3 (4.8-10.8)
[2021-03-03 11:06] LABS: Calcium 8.9 mg/dl (8.4-10.2); Glucose 104 mg/dl (74-100)
[2021-03-03 12:45] LABS: Anisocytosis 2+; Eosinophils % 4 % (0-3); Hypochromasia 2+; Lymphocytes % 35 % (10-50); Macrocytosis 1+; Monocytes % 21 % (2-9); Neutrophils % 36 % (42-76); Nucleated Red Blood Cells 4; Platelet Estimate Normal; Total Cells Counted 100
[2021-03-03 13:00] VITALS: BP 133/60; PULSE 68; RESP 20; TEMP 36.9; O2SAT 95
[2021-03-03 13:30] VITALS: BP 122/70; PULSE 65; RESP 20; TEMP 36.9; O2SAT 95
== END 2021-03-03 13:35 | disposition home or self-care (01) ==
LOC: INF 10:40
PROVIDERS: Visit Provider Internal Medicine Medical Oncology
DX: C62.92 Malignant neoplasm of left testis, unspecified whether descended or undescended (principal); Z51.11 Encounter for antineoplastic chemotherapy; C78.00 Secondary malignant neoplasm of unspecified lung; C78.6 Secondary malignant neoplasm of retroperitoneum and peritoneum; C77.2 Secondary and unspecified malignant neoplasm of intra-abdominal lymph nodes
CPT/HCPCS: 80053; 85007; 85025; 96413; J1642; J9040

== ENCOUNTER 2021-03-09 08:38 | Outpatient (CLI) | payer OTHER, SELFPAY ==
[2021-03-09] VITALS (10 sets, daily range): BP systolic 104–127; BP diastolic 55–80; PULSE 57–81; RESP 18; TEMP 36.7; O2SAT 97–98; BMI 23.8
[2021-03-09 08:57] LABS: Eosinophils % 0.9 % (0.1-12.0); Hematocrit 35.2 % (42.0-52.0); Hemoglobin 12.1 g/dL (14.1-18.0); Lymphocytes # 0.9 K/mm3 (0.7-4.5); Lymphocytes % 26.5 % (10-50); Mean Corpuscular HGB Conc 34.5 g/dL (31.8-35.4); Mean Corpuscular Hemoglobin 28.8 pg (27.0-31.2); Mean Corpuscular Volume 83.7 fl (80-94); Mean Platelet Volume 8.5 fl (7.4-10.4); Monocytes # 0.5 K/mm3 (0.1-1.0); Monocytes % 12.8 % (1.7-9.3); Neutrophils # 2.1 K/mm3 (1.8-7.8); Neutrophils % 58.9 % (37.0-80.0); Platelet Count 439 K/mm3 (142-424); Red Blood Count 4.21 M/mm3 (4.60-6.20); Red Cell Distribution Width 19.1 % (11.5-17.5); White Blood Count 3.6 K/mm3 (4.8-10.8)
[2021-03-09 09:09] LABS: Alanine Aminotransferase 19 U/L (12-78); Albumin Level 4.2 g/dl (3.5-5.0); Albumin/Globulin Ratio 1.3 (1.1-1.8); Alkaline Phosphatase 75 U/L (38-126); Anion Gap 12.3 mEq/L (5-15); Aspartate Amino Transferase 27 U/L (17-59); Bilirubin,Total 0.3 mg/dl (0.2-1.3); Blood Urea Nitrogen 13 mg/dl (9-20); Calcium 8.8 mg/dl (8.4-10.2); Carbon Dioxide 29 mmol/L (22.0-30.0); Chloride 101 mmol/L (98-107); Creatinine Clearance Estimated 85 mL/min (50-200); Estimated Glomerular Filt Rate 68 ml/min (>60); GFR (African American) 82 ML/MIN (>60); Globulin 3.2 g/dL (1.3-3.2); Glucose 101 mg/dl (74-100); Magnesium 2.3 mg/dl (1.6-2.3); Potassium 4.3 mmoL/L (3.5-5.1); Sodium 138 mmol/L (136-145); Total Protein,Serum 7.4 g/dl (6.3-8.2)
== END 2021-03-09 15:15 | disposition home or self-care (01) ==
LOC: INF 08:38
PROVIDERS: Visit Provider Internal Medicine Medical Oncology
DX: C62.92 Malignant neoplasm of left testis, unspecified whether descended or undescended (principal); C78.00 Secondary malignant neoplasm of unspecified lung; K76.89 Other specified diseases of liver
CPT/HCPCS: 80053; 83735; 85025; 96411; 96413; 96415; 96417; J1642; J2469; J9040; J9060; J9181

== ENCOUNTER 2021-03-10 08:40 | Outpatient (CLI) | payer OTHER, SELFPAY ==
[2021-03-10] VITALS (13 sets, daily range): BP systolic 115–145; BP diastolic 57–83; PULSE 62–77; RESP 17; O2SAT 98
== END 2021-03-10 15:03 | disposition home or self-care (01) ==
LOC: INF 08:46
PROVIDERS: Visit Provider Internal Medicine Medical Oncology
DX: Z51.11 Encounter for antineoplastic chemotherapy (principal); C62.92 Malignant neoplasm of left testis, unspecified whether descended or undescended; C78.00 Secondary malignant neoplasm of unspecified lung; K76.89 Other specified diseases of liver; C78.6 Secondary malignant neoplasm of retroperitoneum and peritoneum
CPT/HCPCS: 96413; 96415; 96417; J1642; J9060; J9181

== ENCOUNTER 2021-03-11 08:49 | Outpatient (CLI) | payer OTHER, SELFPAY ==
[2021-03-11] VITALS (16 sets, daily range): BP systolic 121–147; BP diastolic 66–84; PULSE 61–75; RESP 16–18; TEMP 36.7; O2SAT 98
== END 2021-03-11 14:55 | disposition home or self-care (01) ==
LOC: INF 08:49
PROVIDERS: Visit Provider Internal Medicine Medical Oncology
DX: Z51.11 Encounter for antineoplastic chemotherapy (principal); C62.92 Malignant neoplasm of left testis, unspecified whether descended or undescended; C78.00 Secondary malignant neoplasm of unspecified lung; K76.89 Other specified diseases of liver; C78.6 Secondary malignant neoplasm of retroperitoneum and peritoneum; C77.2 Secondary and unspecified malignant neoplasm of intra-abdominal lymph nodes
CPT/HCPCS: 96413; 96415; 96417; J1642; J9060; J9181

== ENCOUNTER 2021-03-12 08:25 | Outpatient (CLI) | payer OTHER, SELFPAY ==
[2021-03-12] VITALS (9 sets, daily range): BP systolic 114–142; BP diastolic 62–81; PULSE 61–74; RESP 18–20; TEMP 36.9; O2SAT 98–99
== END 2021-03-12 14:18 | disposition home or self-care (01) ==
LOC: INF 08:30
PROVIDERS: Visit Provider Internal Medicine Medical Oncology
DX: Z51.11 Encounter for antineoplastic chemotherapy (principal); C62.92 Malignant neoplasm of left testis, unspecified whether descended or undescended; C78.00 Secondary malignant neoplasm of unspecified lung; K76.89 Other specified diseases of liver; C78.6 Secondary malignant neoplasm of retroperitoneum and peritoneum; C77.2 Secondary and unspecified malignant neoplasm of intra-abdominal lymph nodes
CPT/HCPCS: 96413; 96415; 96417; J1642; J9060; J9181

== ENCOUNTER 2021-03-13 08:45 | Outpatient (CLI) | payer OTHER, SELFPAY ==
[2021-03-13] VITALS (14 sets, daily range): BP systolic 118–159; BP diastolic 60–111; PULSE 51–80; RESP 16–18; O2SAT 95
== END 2021-03-13 14:26 | disposition home or self-care (01) ==
LOC: INF 08:58
PROVIDERS: Visit Provider Internal Medicine Medical Oncology
DX: C62.92 Malignant neoplasm of left testis, unspecified whether descended or undescended (principal); C78.00 Secondary malignant neoplasm of unspecified lung; K76.89 Other specified diseases of liver; C78.6 Secondary malignant neoplasm of retroperitoneum and peritoneum; C77.2 Secondary and unspecified malignant neoplasm of intra-abdominal lymph nodes
CPT/HCPCS: 96413; 96415; 96417; J1642; J9060; J9181

== ENCOUNTER 2021-03-16 10:20 | Outpatient (CLI) | payer OTHER, SELFPAY ==
[2021-03-16 10:19] VITALS: BMI 23.8
[2021-03-16 10:20] VITALS: BP 100/65; PULSE 68; RESP 20; TEMP 36.9; O2SAT 95
[2021-03-16 10:37] LABS: Basophils % 0.8 % (0.1-2.0); Eosinophils % 0.7 % (0.1-12.0); Hematocrit 37.4 % (42.0-52.0); Hemoglobin 12.8 g/dL (14.1-18.0); Lymphocytes # 0.5 K/mm3 (0.7-4.5); Lymphocytes % 10.5 % (10-50); Mean Corpuscular HGB Conc 34.3 g/dL (31.8-35.4); Mean Corpuscular Hemoglobin 29.2 pg (27.0-31.2); Mean Corpuscular Volume 85.2 fl (80-94); Mean Platelet Volume 7.3 fl (7.4-10.4); Monocytes # 0.1 K/mm3 (0.1-1.0); Monocytes % 1.6 % (1.7-9.3); Neutrophils # 4.2 K/mm3 (1.8-7.8); Neutrophils % 86.5 % (37.0-80.0); Platelet Count 380 K/mm3 (142-424); Red Blood Count 4.39 M/mm3 (4.60-6.20); Red Cell Distribution Width 18.9 % (11.5-17.5); White Blood Count 4.9 K/mm3 (4.8-10.8)
[2021-03-16 10:39] LABS: MANUAL DIFFERENTIAL MANUAL DIFFERENTIAL (MANUAL DIFF)
[2021-03-16 10:40] VITALS: BP 100/71; PULSE 68; RESP 20
[2021-03-16 10:48] LABS: Alanine Aminotransferase 36 U/L (12-78); Albumin Level 4.6 g/dl (3.5-5.0); Albumin/Globulin Ratio 1.4 (1.1-1.8); Alkaline Phosphatase 70 U/L (38-126); Aspartate Amino Transferase 36 U/L (17-59); Bilirubin,Total 0.6 mg/dl (0.2-1.3); Blood Urea Nitrogen 20 mg/dl (9-20); Calcium 9.5 mg/dl (8.4-10.2); Carbon Dioxide 32 mmol/L (22.0-30.0); Creatinine Clearance Estimated 102 mL/min (50-200); Estimated Glomerular Filt Rate 84 ml/min (>60); GFR (African American) 102 ML/MIN (>60); Globulin 3.2 g/dL (1.3-3.2); Glucose 100 mg/dl (74-100); Potassium 4.4 mmoL/L (3.5-5.1); Sodium 136 mmol/L (136-145); Total Protein,Serum 7.8 g/dl (6.3-8.2)
[2021-03-16 11:05] LABS: Anion Gap 12.4 mEq/L (5-15); Chloride 96 mmol/L (98-107)
[2021-03-16 11:30] VITALS: BP 105/72; PULSE 70; RESP 20; TEMP 36.9
[2021-03-16 11:33] LABS: Eosinophils % 1 % (0-3); Lymphocytes % 10 % (10-50); Monocytes % 2 % (2-9); Neutrophils % 87 % (42-76); Platelet Estimate Normal; RBC Morphology Normal; Total Cells Counted 100
[2021-03-16 12:05] VITALS: BP 119/74; PULSE 68
[2021-03-16 12:40] VITALS: BP 114/74; PULSE 72; RESP 20; TEMP 36.9; O2SAT 95
== END 2021-03-16 12:50 | disposition home or self-care (01) ==
LOC: INF 10:22
PROVIDERS: Visit Provider Internal Medicine Medical Oncology
DX: Z51.11 Encounter for antineoplastic chemotherapy (principal); C62.92 Malignant neoplasm of left testis, unspecified whether descended or undescended; C78.00 Secondary malignant neoplasm of unspecified lung; K76.89 Other specified diseases of liver; C78.6 Secondary malignant neoplasm of retroperitoneum and peritoneum
CPT/HCPCS: 80053; 83735; 85007; 85025; 96360; 96375; 96413; J1642; J2405; J9040

== ENCOUNTER 2021-03-23 11:36 | Outpatient (CLI) | payer OTHER, SELFPAY ==
[2021-03-23 11:36] VITALS: BMI 24.0
[2021-03-23 11:53] LABS: Basophils % 1.1 % (0.1-2.0); Eosinophils % 1.4 % (0.1-12.0); Hematocrit 32.9 % (42.0-52.0); Hemoglobin 10.8 g/dL (14.1-18.0); Lymphocytes # 0.6 K/mm3 (0.7-4.5); Lymphocytes % 24.8 % (10-50); Mean Corpuscular HGB Conc 32.9 g/dL (31.8-35.4); Mean Corpuscular Hemoglobin 28.6 pg (27.0-31.2); Mean Corpuscular Volume 86.9 fl (80-94); Monocytes # 0.4 K/mm3 (0.1-1.0); Monocytes % 17.1 % (1.7-9.3); Neutrophils # 1.3 K/mm3 (1.8-7.8); Neutrophils % 55.6 % (37.0-80.0); Platelet Count 294 K/mm3 (142-424); Red Blood Count 3.78 M/mm3 (4.60-6.20); Red Cell Distribution Width 18.6 % (11.5-17.5); White Blood Count 2.3 K/mm3 (4.8-10.8)
[2021-03-23 11:58] LABS: Chloride 102 mmol/L (98-107); Sodium 139 mmol/L (136-145)
[2021-03-23 12:01] LABS: Alanine Aminotransferase 21 U/L (12-78); Albumin Level 4.1 g/dl (3.5-5.0); Albumin/Globulin Ratio 1.3 (1.1-1.8); Alkaline Phosphatase 75 U/L (38-126); Aspartate Amino Transferase 26 U/L (17-59); Bilirubin,Total 0.2 mg/dl (0.2-1.3); Blood Urea Nitrogen 16 mg/dl (9-20); Carbon Dioxide 31 mmol/L (22.0-30.0); Creatinine Clearance Estimated 114 mL/min (50-200); Estimated Glomerular Filt Rate 95 ml/min (>60); GFR (African American) 115 ML/MIN (>60); Globulin 3.2 g/dL (1.3-3.2); Total Protein,Serum 7.3 g/dl (6.3-8.2)
[2021-03-23 12:02] LABS: Calcium 8.7 mg/dl (8.4-10.2); Glucose 125 mg/dl (74-100)
[2021-03-23 12:40] VITALS: BP 124/72; PULSE 75; RESP 20; TEMP 36.9; O2SAT 98
[2021-03-23 13:10] VITALS: BP 118/70; PULSE 68; RESP 20; TEMP 36.9; O2SAT 95
== END 2021-03-23 13:10 | disposition home or self-care (01) ==
LOC: INF 11:36
PROVIDERS: Visit Provider Internal Medicine Medical Oncology
DX: Z51.11 Encounter for antineoplastic chemotherapy (principal); C62.92 Malignant neoplasm of left testis, unspecified whether descended or undescended; C78.00 Secondary malignant neoplasm of unspecified lung; K76.89 Other specified diseases of liver; C78.6 Secondary malignant neoplasm of retroperitoneum and peritoneum; C77.2 Secondary and unspecified malignant neoplasm of intra-abdominal lymph nodes
CPT/HCPCS: 80053; 85025; 96413; J1642; J9040

== ENCOUNTER 2021-05-25 12:04 | Outpatient (CLI) | payer OTHER, SELFPAY ==
[2021-05-25 12:10] VITALS: BP 122/77; PULSE 68; RESP 20; TEMP 36.9; O2SAT 95
== END 2021-05-25 12:25 | disposition home or self-care (01) ==
LOC: INF 12:07
PROVIDERS: PCP Internal Medicine Adolescent Medicine; Visit Provider Internal Medicine Medical Oncology
DX: Z45.2 Encounter for adjustment and management of vascular access device (principal)
CPT/HCPCS: 96523; J1642

== ENCOUNTER → 2021-06-05 08:39 | Outpatient (CLI) | payer OTHER, SELFPAY | DX: Z01.812 Encounter for preprocedural laboratory examination (principal); Z20.822 Contact with and (suspected) exposure to COVID-19 | CPT/HCPCS: C9803; U0003; U0005 ==

== ENCOUNTER 2021-06-15 15:45 | Emergency (ER) | payer OTHER, SELFPAY ==
[2021-06-15 15:46] VITALS: BP 156/107; PULSE 98; RESP 18; TEMP 36.6; O2SAT 99; BMI 24.0
--- NOTE | 2021-06-15 16:13 | XR_ITS ---
PROCEDURE: XR HAND LT MIN 3V CLINICAL INDICATION: nail in 1st digit COMPARISON: No exams were available for comparison FINDINGS: A longitudinal metallic density is present and on all three views lies along the proximal aspect of the 1st interphalangeal joint appearing to extend into the articular space. A true lateral view however is not submitted. On the oblique view that L does not appear to involve the distal aspect of the proximal phalanx of the thumb. No other significant anomalies are evident. The joint spaces are well-preserved. No significant degenerative/arthritic changes. No erosive changes evident. Other findings:None. IMPRESSION: Metallic foreign body representing a nail which overlies the proximal aspect of the distal phalanx of the thumb on all three views. A true lateral exam of the thumb is suggested to confirm intraosseous involvement. Dictated by: Espinoza Walls MD 06/15/2021 17:00 Espinoza Walls MD in [facility] 06/15/2021 17:00
--- NOTE | 2021-06-15 16:14 | HMH.EDGENADL ---
ED Disposition Clinical Impression: Foreign body Disposition: Xfer Critical Access Hosp Condition on Discharge: Fair Instructions: DI for Finger Fracture, DI for Removal of Foreign Body From Skin Additional Instructions: Please follow-up with Dr. Hooker, the orthopedic surgeon. Consult has been placed. Also prescribing you with antibiotics, as well as pain medication. Return to the emergency department for any new or concerning symptoms, you may shower as normally, and change the wound put Neosporin or bacitracin ointment on it after. If you are having increased swelling, red streaking, increased pain in the area or have any other new or concerning symptoms return to the emergency department. Prescriptions: Hydrocod/Acet 5/325 mg [Dell 5/325mg tablet] 1 tab PO Q6HP PRN #10 tab PRN Reason: Moderate To Severe Pain Transmission Status: Received by [facility] cephALEXin [Cephalexin 500mg Tab] 500 mg PO Q6H 7 Days #28 tab Transmission Status: Received by [facility] Referrals: Kimani Mcclain MD [Primary Care Provider] - Izaiah Hooker MD [Staff Physician] - - Critical Care Critical Care Time: No Attestation: On 06/15/21, the high probability of a clinically significant, sudden or life threatening deterioration of the following system(s) required my full and direct attention, intervention and personal management. The time I documented below is in addition to time spent performing reported procedures but includes the following listed in this critical care notation. Medical Decision Making - Andre Inquiry Pt receiving controlled substance: No Andre was queried for this patient: No Vital Signs: 06/15/21 15:46 06/15/21 18:06 06/15/21 18:42 Temperature 97.9 F Temperature Source Oral Pulse Rate 84 72 Pulse Rate [Right Radial] 98 H Respiratory Rate 18 18 Blood Pressure 151/104 H 153/99 H Blood Pressure [Right Arm] 156/107 H Blood Pressure Mean [Right Arm] 123 Blood Pressure Source [Right Arm] Automatic Cuff Blood Pressure Position [Right Arm] Sitting 02 Sat by Pulse Oximetry 99 98 99 Oxygen Delivery Method Room Air Room Air 06/15/21 18:55 06/15/21 19:01 06/15/21 19:29 Temperature 98.1 F Temperature Source Pulse Rate 76 78 79 Pulse Rate [Right Radial] Respiratory Rate 22 19 19 Blood Pressure 169/117 H 160/140 H 138/95 H Blood Pressure [Right Arm] Blood Pressure Mean [Right Arm] Blood Pressure Source [Right Arm] Blood Pressure Position [Right Arm] 02 Sat by Pulse Oximetry 99 99 Oxygen Delivery Method Orders (Tests/Meds): ED MEDICATIONS Discontinued Medications Generic Name Dose Route Start Last Admin Trade Name Richq PRN Reason Stop Dose Admin Hydrocodone Bitart/Acetaminophen 2 tab 06/15/21 16:12 06/15/21 16:17 Hydrocodone/Apap 5/325 Mg Tablet PO 06/15/21 16:13 2 tab ONCE ONE Administration Cefazolin Sodium 2 gm 06/15/21 17:44 06/15/21 18:01 Cefazolin 1gm Vial IM 06/15/21 17:45 2 gm ONCE ONE Administration Ibuprofen 400 mg 06/15/21 16:12 06/15/21 16:17 Ibuprofen 400 Mg Tablet PO 06/15/21 16:13 400 mg ONCE ONE Administration Ketamine HCl 20 mg 06/15/21 18:46 06/15/21 18:45 Ketamine 500mg/10ml Vial IV 06/15/21 18:47 20 mg ONCE ONE Administration Tetanus/Diphtheria Toxoids 0.5 ml 06/15/21 16:58 06/15/21 16:59 Tetanus-Diphth Toxoid, Adult 0.5ml Syr IM 06/15/21 16:59 0.5 ml .ONCE ONE Administration Medical Decision Narrative: Patient is a 36-year-old male presented emergency department with chief complaint of foreign body in the left first metacarpal digit. Differential diagnosis includes comminuted fracture, foreign body, displaced fracture among others. Patient has not had a recent shot, he is given Tdap. Hand was placed to soak in Hibiclens and water, patient was given analgesia with Motrin and Dell, 2 g of Ancef due to concerns that fracture was open. X-rays of t
--- NOTE | 2021-06-15 16:58 | XR_ITS ---
PROCEDURE INFORMATION: Exam: XR Left Finger(s) Exam date and time: 06/15/2021 4:58 PM Age: 36 years old Clinical indication: Pain; Finger(s); Left; Additional info: Thumb, foreign body TECHNIQUE: Imaging protocol: XR Left fingers. Views: Minimum 2 views. COMPARISON: CR XR HAND LT MIN 3V 06/15/2021 4:46 PM FINDINGS: Bones/joints: Nail seen in the distal aspect of the thumb which projects over the base of the distal phalanx on all views. No acute fracture or dislocation. Bone mineralization is normal. Soft tissues: Mild thumb swelling. IMPRESSION: Nail in the distal aspect of the thumb appears to extend through the base of the distal phalanx.
[2021-06-15 18:06] VITALS: BP 151/104; PULSE 84; O2SAT 98
--- NOTE | 2021-06-15 18:08 | PC.NURSE ---
[facility] declined pt transfer, stating they were only taking surgical emergencies. Paged ortho here for suggestions
--- NOTE | 2021-06-15 18:16 | PC.NURSE ---
message left for Dr Hooker to return call.
--- NOTE | 2021-06-15 18:28 | PC.NURSE ---
Dr Hooker paged again at this time.
--- NOTE | 2021-06-15 18:29 | PC.NURSE ---
EMILY CATALAN speaking with Dr Hooker at this time.
[2021-06-15 18:42] VITALS: BP 153/99; PULSE 72; RESP 18; O2SAT 99
--- NOTE | 2021-06-15 18:50 | XR_ITS ---
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 Views: Minimum 2 views. COMPARISON: CR XR FINGER LT MIN 2V 06/15/2021 4:59 PM FINDINGS: Bones/joints: The nail has been removed from the distal phalanx. There is a lucency in the region of the track of the nail. There is also a subtle nondisplaced fracture through the distal phalanx. No dislocation. Soft tissues: Soft tissue swelling within the thumb. IMPRESSION: Removal of distal thumb foreign body with subtle nondisplaced fracture in the distal phalanx.
[2021-06-15 18:55] VITALS: BP 169/117; PULSE 76; RESP 22; O2SAT 99
[2021-06-15 19:01] VITALS: BP 160/140; PULSE 78; RESP 19; O2SAT 99
[2021-06-15 19:29] VITALS: BP 138/95; PULSE 79; RESP 19; TEMP 36.7; O2SAT 99
== END 2021-06-15 19:40 | disposition short-term general hospital (02) ==
PROVIDERS: Emergency Provider Emergency Medicine; PCP Internal Medicine Adolescent Medicine
DX: S60.352A Superficial foreign body of left thumb, initial encounter; W29.4XXA Contact with nail gun, initial encounter; Z23 Encounter for immunization
CPT/HCPCS: 20103; 73130; 73140; 90471; 90714; 96372; 96375; 99283

== ENCOUNTER → 2021-07-02 07:54 | Outpatient (CLI) | payer OTHER, SELFPAY ==
--- NOTE | 2021-07-02 07:57 | MR_ITS ---
PROCEDURE: MR HEAD/BRAIN WO CON CLINICAL INDICATION: SEMINOMA, HEADACHE Metastatic seminoma. COMPARISON: No exams were available for comparison TECHNIQUE: Routine multiplanar multi echo sequences are performed without gadolinium enhancement. FINDINGS: No midline shift, mass effect, intracranial hemorrhage, or hydrocephalus. No evidence of acute infarction. The cerebellopontine angles, cerebellum, and brainstem have an unremarkable appearance. Unremarkable appearing white matter. No intra or extra-axial masses are apparent. The pituitary, optic chiasm, corpus callosum, and craniocervical junction have an unremarkable appearance. Small amount fluid signal is present in the right mastoid sinus. No paranasal sinus air-fluid level. The orbits have an unremarkable appearance IMPRESSION: No acute intracranial findings. No evidence of metastatic disease. Small amount fluid in the right mastoid sinus. Dictated by: Espinoza Walls MD 07/03/2021 16:52 Espinoza Walls MD in [place] 07/03/2021 16:52
== END ==
PROVIDERS: PCP Internal Medicine Adolescent Medicine; Visit Provider Internal Medicine Adolescent Medicine
DX: G44.52 New daily persistent headache (NDPH) (principal); C62.90 Malignant neoplasm of unspecified testis, unspecified whether descended or undescended
CPT/HCPCS: 70551

== ENCOUNTER 2021-10-30 08:17 | Outpatient (CLI) | payer OTHER, SELFPAY | END 2021-10-30 08:25 | disposition home or self-care (01) | LOC: INF 08:18 | PROVIDERS: PCP Internal Medicine Medical Oncology; Visit Provider Internal Medicine Medical Oncology | DX: Z45.2 Encounter for adjustment and management of vascular access device (principal) | CPT/HCPCS: 96523; J1642 ==

== ENCOUNTER 2021-12-23 07:17 | Outpatient (CLI) | payer OTHER, SELFPAY ==
--- NOTE | 2021-12-23 07:27 | MR_ITS ---
FINAL REPORT CLINICAL HISTORY: constant headache, hx of metastatic disease, testicular cancer 14ml prohance COMPARISON: 07/02/2021 FINDINGS: Multiplanar MR imaging of the brain was performed without and with contrast. There is no evidence of intracranial hemorrhage or mass. No abnormal extra-axial fluid collection is seen. The ventricular size is within normal limits. There is no evidence of shift of the midline structures. The posterior fossa and brainstem have an unremarkable appearance. No area of abnormal restricted diffusion is identified. No abnormal contrast enhancement is seen. Normal major vessel vascular flow voids are noted. There is mild abnormal signal in the right mastoid air cell. IMPRESSION: No acute intracranial abnormality identified. No evidence of metastatic disease. Reviewed, Interpreted and Dictated by Simón Stokes MD Transcribed by Kasey Giraldo Authenticated by Simón Stokes MD on 12/23/2021 10:48:41 AM [facility]
== END 2021-12-23 08:28 | disposition home or self-care (01) ==
LOC: RAD 07:18 → INF 08:28
PROVIDERS: PCP Internal Medicine Adolescent Medicine; Visit Provider Nurse Practitioner Family
DX: G44.89 Other headache syndrome (principal); G43.709 Chronic migraine without aura, not intractable, without status migrainosus; G43.119 Migraine with aura, intractable, without status migrainosus; C62.92 Malignant neoplasm of left testis, unspecified whether descended or undescended
CPT/HCPCS: 70553; 96523; A9576; J1642

== ENCOUNTER 2022-01-21 10:06 | Outpatient (CLI) | payer OTHER, SELFPAY | END 2022-01-21 10:30 | disposition home or self-care (01) | LOC: INF 10:07 | PROVIDERS: PCP Internal Medicine Adolescent Medicine; Visit Provider Internal Medicine Medical Oncology | DX: Z45.2 Encounter for adjustment and management of vascular access device (principal) | CPT/HCPCS: 96523; J1642 ==

== ENCOUNTER 2022-02-26 15:47 | Outpatient (CLI) | payer OTHER, SELFPAY | END 2022-02-26 16:05 | disposition home or self-care (01) | LOC: INF 15:48 | PROVIDERS: PCP Internal Medicine Adolescent Medicine; Visit Provider Internal Medicine Medical Oncology | DX: Z45.2 Encounter for adjustment and management of vascular access device (principal) | CPT/HCPCS: 96523; J1642 ==

== ENCOUNTER 2022-03-30 15:59 | Outpatient (CLI) | payer OTHER, SELFPAY | END 2022-03-30 16:10 | disposition home or self-care (01) | LOC: INF 16:01 | PROVIDERS: PCP Internal Medicine Adolescent Medicine; Visit Provider Internal Medicine Medical Oncology | DX: Z45.2 Encounter for adjustment and management of vascular access device (principal) | CPT/HCPCS: 96523; J1642 ==

== ENCOUNTER → 2022-05-25 12:42 | Outpatient (CLI) | payer OTHER, SELFPAY ==
[2022-05-25 13:15] VITALS: PULSE 77; PULSE 80
== END ==
PROVIDERS: PCP Internal Medicine Adolescent Medicine; Visit Provider Internal Medicine Pulmonary Disease
DX: R06.02 Shortness of breath (principal)
CPT/HCPCS: 94060; 94618; 94640; 94726; 94729

== ENCOUNTER 2022-05-26 15:57 | Outpatient (CLI) | payer OTHER, SELFPAY | END 2022-05-26 16:09 | disposition home or self-care (01) | LOC: INF 15:58 | PROVIDERS: PCP Internal Medicine Adolescent Medicine; Visit Provider Internal Medicine Medical Oncology | DX: Z45.2 Encounter for adjustment and management of vascular access device (principal) | CPT/HCPCS: 96523; J1642 ==

== ENCOUNTER 2022-06-17 15:29 | Outpatient (CLI) | payer OTHER, SELFPAY | END 2022-06-17 15:45 | disposition home or self-care (01) | LOC: INF 15:29 | PROVIDERS: PCP Internal Medicine Adolescent Medicine; Visit Provider Nurse Practitioner Family | DX: Z45.2 Encounter for adjustment and management of vascular access device (principal) | CPT/HCPCS: 96523; J1642 ==

== ENCOUNTER 2022-07-12 15:32 | Outpatient (CLI) | payer OTHER, SELFPAY | END 2022-07-12 15:51 | disposition home or self-care (01) | LOC: INF 15:32 | PROVIDERS: PCP Internal Medicine Adolescent Medicine; Visit Provider Internal Medicine Medical Oncology | DX: Z45.2 Encounter for adjustment and management of vascular access device (principal) | CPT/HCPCS: 96523; J1642 ==

== ENCOUNTER 2022-08-10 15:31 | Outpatient (CLI) | payer OTHER, SELFPAY | END 2022-08-10 15:56 | disposition home or self-care (01) | LOC: INF 15:31 | PROVIDERS: PCP Internal Medicine Adolescent Medicine; Visit Provider Nurse Practitioner Family | DX: Z45.2 Encounter for adjustment and management of vascular access device (principal) | CPT/HCPCS: 96523; J1642 ==

== ENCOUNTER 2023-04-24 11:44 | Emergency (ER) | payer OTHER, SELFPAY ==
[2023-04-24 11:46] VITALS: PULSE 77; RESP 18; TEMP 36.8; O2SAT 96; BMI 22.8
[2023-04-24 11:50] VITALS: BP 172/101; PULSE 77; O2SAT 96
[2023-04-24 11:57] VITALS: BP 144/105; PULSE 80; O2SAT 97
--- NOTE | 2023-04-24 12:11 | HMH.EDGENADL ---
Discharge Plan Disposition Patient Disposition: Home, Self-Care Prescriptions Prescriptions: New hydroxyzine pamoate [Vistaril] 25 mg capsule 25 mg PO Q8H PRN (Reason: anxiety) 7 Days Qty: 21 0RF No Action fluticasone propionate 50 mcg/actuation spray,suspension 1 spray INTRANASAL NEEDED PRN (Reason: allergies) Patient Comments: INSTILL 2 SPRAYS IN EACH NOSTRIL EVERY DAY Referrals Follow up/Referrals: Kimani Mcclain MD [Primary Care Provider] - See instructions Activity Restrictions/Add. Instructions Additional Instructions/Restrictions: I recommend discontinuing caffeine during the day make sure you exercise early, you may take 5 mg of [id number] melatonin at night for sleep and you may take your Vistaril as I have prescribed you for anxiety which may help with sedation and effort to sleep as well. I do think it is a good idea to take a few days off work in an effort to try to rest. Please follow-up with your primary care doctor as needed. Return with any suicidal thoughts homicidal thoughts auditory or visual hallucinations or other concerns. Clinical Impressions Clinical Impression: Anxiety, Insomnia Discharge ED Provider: Kerrie Bright General Adult HPI General Chief complaint: Anxiety Stated complaint: cant sleep Time Seen by Provider: 04/24/23 12:08 Mode of Arrival: Ambulatory Source of Information: Patient Limitations: No Limitations Description of Symptoms (Recalled from ER Triage Doc. by RN): Pt states that he has hx of insomnia has not sleep well in over a week. He has had small catnaps , but nothing really. He denies drug or alcohol use. History of Present Illness HPI narrative: Patient is a 38-year-old male with extensive past medical history of metastatic testicular cancer currently in remission has chronic pain has a history of drug abuse presented today with anxiety and insomnia. He denies any suicidal ideations homicidal patient's auditory visual hallucinations and states he just needs some help sleeping. In the past he had resorted to drugs and alcohol in order to sleep but he does not want to do that again. He has been trying some CBD Gummies at home without any improvement of his symptoms. And he comes here looking for further discussion. He does drink coffee on a daily basis and also has been only taking intranasal Flonase which she believes has been a stimulant for him. Related Data Home Medications Medication Instructions Recorded Confirmed fluticasone propionate 50 1 spray intranasal NEEDED PRN 03/05/21 06/17/22 mcg/actuation nasal allergies spray,suspension Previous Rx's Medication Instructions Recorded hydroxyzine pamoate 25 mg capsule 25 mg PO Q8H PRN anxiety 7 days 04/24/23 (Vistaril) #21 caps Allergies Allergy/AdvReac Type Severity Reaction Status Date / Time No Known Allergies Allergy Verified 06/17/22 15:56 [facility] Disclaimer: The information contained in this section may have been updated after the patient was seen, as this information can be updated by other users. 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
[2023-04-24 12:18] VITALS: BP 164/59; PULSE 70; RESP 18; TEMP 36.8; O2SAT 98
== END 2023-04-24 12:18 | disposition home or self-care (01) ==
PROVIDERS: Emergency Provider Student in an Organized Health Care Education/Training Program; PCP Internal Medicine Adolescent Medicine
DX: G47.00 Insomnia, unspecified (principal); F41.9 Anxiety disorder, unspecified; Z87.891 Personal history of nicotine dependence; Z85.47 Personal history of malignant neoplasm of testis
CPT/HCPCS: 99283

== ENCOUNTER → 2023-05-31 08:52 | Outpatient (CLI) | payer OTHER, SELFPAY ==
--- NOTE | 2023-05-31 08:55 | XR_ITS ---
FINAL REPORT TECHNIQUE: Chest PA & Lateral CLINICAL HISTORY: COUGH, congestion x 2 days. hx of lung cancer, surgery 1.5 years ago FINDINGS: 2 views of the chest were performed. The heart size is normal. The mediastinum is within normal limits. There is no acute cardiopulmonary process. There are no pleural effusions. There is no pneumothorax. The bony thorax appears intact. IMPRESSION: No acute cardiopulmonary process. Reviewed, Interpreted and Dictated by Chepe Farr III, MD Transcribed by Adalberto Sibley Authenticated and [facility]
== END ==
PROVIDERS: PCP Internal Medicine Adolescent Medicine; Visit Provider Nurse Practitioner Family
DX: R05.9 Cough, unspecified (principal)
CPT/HCPCS: 71046